=== PATIENT | male | born 1945 | race Caucasian/White ===

== ENCOUNTER → 2017-12-05 16:28 | Outpatient (REF) | payer MEDICARE, SELFPAY ==
[2017-12-05 17:17] LABS: Anion Gap 13.4 mEq/L (5-15); Blood Urea Nitrogen 21 mg/dL (7-18); Calcium 8.7 mg/dL (8.5-10.1); Carbon Dioxide 26 mmol/L (21.0-32.0); Chloride 107 mmol/L (98-107); Creatinine,Serum 1.71 mg/dL (0.70-1.30); Estimated Glomerular Filt Rate 40 ml/min (>60); GFR (African American) 48 ML/MIN (>60); Glucose 88 mg/dL (74-106); Potassium 4.4 mmoL/L (3.5-5.1); Sodium 142 mmol/L (136-145)
== END ==
LOC: LAB 16:28
PROVIDERS: Visit Provider Internal Medicine
DX: N40.1 Benign prostatic hyperplasia with lower urinary tract symptoms (principal); I10 Essential (primary) hypertension; E78.5 Hyperlipidemia, unspecified
CPT/HCPCS: 80048; 84153

== ENCOUNTER → 2017-12-14 13:48 | Outpatient (CLI) | payer MEDICARE, SELFPAY ==
--- NOTE | 2017-12-14 13:52 | US_ITS ---
US kidney retroperitoneal comp Ordering Physician: Henrry Hinton Patient Age: 72 years: Male HISTORY: ITS.REASON: RENAL INSUFFICIENCY, KIDNEY TEST ELEVATION Renal insufficiency TECHNIQUE: Ultrasound right and left kidney. COMPARISON : FINDINGS good color Doppler flow to both kidneys. Cortex well-maintained bilaterally with normal echogenicity. No hydronephrosis. No obstruction.. No mass in either kidney. Incidental view Spleen appears normal size. Right kidney.: 8 cm in length x 3.6 cm x 5.5 cm. Left kidney: 9 cm x 3.15 cm x 5.5 cm. IMPRESSION: Kidneys appear normal in size bilaterally with no hydronephrosis nor mass. Cortex well-maintained bilateral
== END ==
PROVIDERS: Family Provider Internal Medicine; PCP Internal Medicine; Visit Provider Internal Medicine
DX: N28.9 Disorder of kidney and ureter, unspecified (principal); R94.4 Abnormal results of kidney function studies
CPT/HCPCS: 76770

== ENCOUNTER → 2018-06-15 10:46 | Outpatient (CLI) | payer MEDICARE, SELFPAY | PROVIDERS: PCP Internal Medicine; Visit Provider Internal Medicine | DX: R07.9 Chest pain, unspecified (principal); R06.09 Other forms of dyspnea | CPT/HCPCS: 93005 ==

== ENCOUNTER → 2018-06-26 10:23 | Outpatient (CLI) | payer MEDICARE, SELFPAY ==
--- NOTE | 2018-06-26 | US_ITS ---
US urinary bladder CLINICAL INDICATION: ITS.REASON: ELEV KIDNEY FUNCTION ORDERING PHYSICIAN: Henrry Hinton PATIENT AGE: 73 years Comparison: None FINDINGS: A nodular area of isoechogenicity is present within the bladder lower which measures 2.5 x 1.8 cm. The remaining urinary bladder has an unremarkable appearance. The full bladder volume is 111 mL. Postvoid volume is 81 mL's. IMPRESSION: 1. 5 cm mass within the floor the urinary bladder. Neoplasm or polyp considered. 2. Low full bladder volume with mild amount of post port residual urine
--- NOTE | 2018-06-26 10:26 | US_ITS ---
US Kidney CLINICAL INDICATION: ITS.REASON: ELEVATED KIDNEY AND LIVER FUNCTION ORDERING PHYSICIAN: Henrry Hinton PATIENT AGE: 73 years Comparison: None FINDINGS: Kidneys are normal size shape and position. No hydronephrosis mass or perinephric fluid collection. There is mild splenomegaly at 14 cm. IMPRESSION: Unremarkable bilateral renal ultrasound Borderline splenomegaly
[2018-06-26 16:22] LABS: Creatinine,Urine Random 94 mg/dL (20-320); Patient Height,Urine 66 inches; Patient Weight,Urine 160 lbs
[2018-06-26 16:25] LABS: Total Protein,Urine Random 5.5 mg/dL (0.0-11.9)
[2018-06-26 18:29] LABS: Collection Time,Urine 24 hours; Creatinine 24 Hour,Urine 1457 mg/24hr (630-2500); Creatinine,Serum 1.44 mg/dL (0.70-1.30); Total Protein 24 Hour,Urine 85 mg/24 hr (40-90); Total Volume,Urine 1550 mL (250-2400)
== END ==
PROVIDERS: PCP Internal Medicine; Visit Provider Internal Medicine
DX: R94.5 Abnormal results of liver function studies (principal)
CPT/HCPCS: 76770; 76857; 82575; 84155

== ENCOUNTER → 2018-07-02 10:45 | Outpatient (CLI) | payer MEDICARE, SELFPAY ==
--- NOTE | 2018-07-02 10:46 | NM_ITS ---
CARDIOLITE SPECT MYOCARDIAL PERFUSION [facility], REST AND STRESS: History: Chest pain, shortness of breath family history Procedure: Patient exercised on Dru protocol 8 minutes and 9 seconds, resting heart rate was 60 beats per resting blood pressure 147/73, with exercise maximum heart rate achieved was 1 26 bpm which is greater than 85% of the maximum predicted heart rate and a blood pressure was 160/84. Test was stopped due to shortness of breath patient denied any complained of chest pain. Patient has good exercise capacity achieved 10.1mets of workload on treadmill, the blood pressure response to exercise was adequate. Electrocardiogram: Resting electrocardiogram showed sinus rhythm rightward axis, with exercise there is less than 1.[address] segment depression noted from the baseline EKG, occasional premature ventricular complexes seen. The EKG portion of the exercise Myoview is negative for ischemia. Cardiac stress and resting SPECT images: Cardiac stress and resting SPECT images were obtained using technetium 99 Myoview 31.2 mCi stress and 10.2 mCi at rest. Gated SPECT further analysis of segmental wall motion and calculation of the ejection fraction also done. Cardiac stress and resting SPECT images show a fixed defect in the wall with normal contractility on the gated SPECT is likely secondary to soft tissue attenuation, no reversible ischemia seen. Computer derived ejection fraction is 53% no wall motion abnormality, right ventricle is normal size and contractility. Conclusion: 1. The EKG portion of the exercise Myoview is negative for ischemia, patient has good exercise capacity achieved 10.1mets of workload on treadmill, the blood pressure response to exercise was adequate, there was no exercise-induced chest discomfort. 2. No scintigraphic evidence of reversible ischemia seen, either derived ejection fraction is 53% with no regional wall motion abnormality, right ventricle is normal size and contractility. 3. Normal exercise Myoview study.
--- NOTE | 2018-07-02 11:16 | HMH.ITSHM ---
Current Home Medications as stated by this patient Porfirio Burgess or manufacturer's representative. []ASA TAMSULOSIN VITAMIN B OMEPRAZOLE
--- NOTE | 2018-07-02 11:45 | CA_ITS ---
PROCEDURE: 2-D M-mode and color Doppler study INDICATIONS FOR THE TEST: Chest pain COPD Heart MurmurX Tobacco SmokingEX Palpitations Fatigue Syncope Edema Hypertension Diabetes Mellitus Rheumatic Fever SOBXDOE Obesity Hyperlipidemia Family History HDX Additional History BRADYCARDIA,ABN EKG PATIENT INFORMATION HEIGHT: 63 WEIGHT:163 GENDER: Male B/P:134/66 2-D/M-MODE INTERPRETATION: 2-D MEASUREMENTS OBSERVED VALUES IN CMS Right Ventricular Dimension (RVDd) 2.2 Interventricular Septum (Thickness)(IVsd) .7 Left Ventricular Internal Dimensions(LVIDd) 5.4 Left Ventricular Posterior Wall (Thickness)(LVPWd) .9 Aortic Root 3.1 Aortic Cusp Separation 1.7 Left Atrial Dimensions (LAD) 3.4 2D 1. Left atrium is mildly enlarged, left ventricle is normal size, there is no concentric left ventricular hypertrophy, visually estimated ejection fraction 50-55% with no obvious regional wall motion abnormality. 2. The right atrium and right ventricle are mildly enlarged with normal contractility. 3. The aortic valve is minimally thickened and fibrosed. 4. The mitral and tricuspid valve leaflets are minimally thickened 5. The pulmonic valve is poorly visualized. 6. No significant pericardial effusion noted. DOPPLER INTERROGATION: Doppler interrogation of the aortic, mitral and tricuspid valvular presence of mild mitral and tricuspid regurgitation, tricuspid regurgitation jet velocity is inadequate for calculation of the right ventricular systolic pressure, grade 1 diastolic dysfunction seen without tissue Doppler evidence of raised left atrial pressure. CONCLUSION: 1. Mildly enlarged left atrium, normal left ventricular size, visually estimated ejection fraction 50-55% with no regional wall motion abnormality, grade 1 diastolic dysfunction seen without tissue Doppler evidence of raised left atrial pressure. 2. Mildly enlarged right ventricle with normal contractility. 3. Mild mitral and tricuspid regurgitation 4. No significant pericardial effusion noted.
== END ==
PROVIDERS: PCP Internal Medicine; Visit Provider Internal Medicine
DX: R94.31 Abnormal electrocardiogram [ECG] [EKG]; R06.02 Shortness of breath; I44.0 Atrioventricular block, first degree; K21.9 Gastro-esophageal reflux disease without esophagitis; R00.1 Bradycardia, unspecified; Z82.49 Family history of ischemic heart disease and other diseases of the circulatory system
CPT/HCPCS: 78452; 93017; 93306; A9502

== ENCOUNTER → 2018-07-06 13:15 | Outpatient (CLI) | payer MEDICARE, SELFPAY | PROVIDERS: Visit Provider Internal Medicine Cardiovascular Disease | DX: R06.02 Shortness of breath (principal) | CPT/HCPCS: 36415; 83880 ==

== ENCOUNTER → 2018-07-18 07:14 | Outpatient (CLI) | payer MEDICARE, SELFPAY ==
--- NOTE | 2018-07-18 07:16 | XR_ITS ---
XR chest 2V HISTORY: ITS.REASON: / ORDERING PHYSICIAN: Isai Gabriel MD PATIENT AGE: 73 years COMPARISON: None FINDINGS: The cardiomediastinal silhouette and pulmonary vascularity are within normal limits. The lungs are clear without infiltrates, suspicious nodules, or pleural effusions. A small nodular opacity overlies the right lower lung zone at 6 mm and may be due to a nipple shadow. There is mild pleural thickening along the left lower hemithorax laterally. No acute bony abnormalities. IMPRESSION: Negative chest, no acute finding
== END ==
PROVIDERS: PCP Internal Medicine; Visit Provider Internal Medicine Cardiovascular Disease
DX: R06.02 Shortness of breath (principal); Z87.891 Personal history of nicotine dependence
CPT/HCPCS: 71046

== ENCOUNTER → 2018-08-13 10:14 | Outpatient (CLI) | payer MEDICARE, SELFPAY ==
--- NOTE | 2018-08-13 10:17 | NVE_ITS ---
Venous Exam Indications: 729.5 Pain in limb. IMPRESSIONS 1. There is no evidence of significant Reflux. 2. No evidence of deep or superficial vein thrombosis involving the right lower extremity 3. Fluid in the soft tissues of the calf suggesting a Ruptured robert's cyst noted. Right lower extremity venous duplex evaluation. Doppler flow study including spectral analysis, color and viera scale imaging. Location: Vascular laboratory. Patient status: Outpatient. Incidental findings: A Robert's cyst is noted incidentally on the right. appears to have ruptured and drained into the calf. Tables: Venous flow and imaging: + +-------+ + Location Overall Flow properties + +-------+ + Right common femoral Patent Normal phasicity; spontaneous; normal augmentation; compressible + +-------+ + Right saphenofemoral junction Patent Compressible + +-------+ + Right profunda femoral Patent Compressible + +-------+ + Right femoral Patent Normal phasicity; spontaneous; normal augmentation; compressible + +-------+ + Right greater saphenous Patent Normal phasicity; spontaneous; normal augmentation; compressible + +-------+ + Right popliteal Patent Normal phasicity; spontaneous; normal augmentation; compressible + +-------+ + Right posterior tibial Patent Compressible + +-------+ + Right peroneal Patent Compressible + +-------+ + Right gastrocnemius Patent Compressible + +-------+ + Right soleal Patent Compressible + +-------+ + (Report amended ) Electronically signed by: Rob Pandey [id number]
== END ==
PROVIDERS: PCP Internal Medicine; Visit Provider Internal Medicine
DX: M79.604 Pain in right leg (principal)
CPT/HCPCS: 93971

== ENCOUNTER → 2021-09-27 11:44 | Outpatient (CLI) | payer MEDICARE, SELFPAY ==
[2021-09-27 13:10] LABS: Basophils # 0.1 K/mm3 (0-0.2); Basophils % 0.8 % (0.1-2.0); Eosinophils # 0.5 K/mm3 (0.0-0.4); Eosinophils % 7.5 % (0.1-12.0); Hematocrit 43.8 % (42.0-52.0); Hemoglobin 15.2 g/dL (14.1-18.0); Lymphocytes # 1.7 K/mm3 (0.7-4.5); Lymphocytes % 27.2 % (10-50); Mean Corpuscular HGB Conc 34.8 g/dL (31.8-35.4); Mean Corpuscular Hemoglobin 32.9 pg (27.0-31.2); Mean Corpuscular Volume 94.6 fl (80-94); Mean Platelet Volume 9.6 fl (7.4-10.4); Monocytes # 0.4 K/mm3 (0.1-1.0); Monocytes % 6.7 % (1.7-9.3); Neutrophils # 3.6 K/mm3 (1.8-7.8); Neutrophils % 57.8 % (37.0-80.0); Platelet Count 145 K/mm3 (142-424); Red Blood Count 4.63 M/mm3 (4.60-6.20); White Blood Count 6.2 K/mm3 (4.8-10.8)
[2021-09-27 13:36] LABS: Alanine Aminotransferase 40 U/L (12-78); Albumin Level 3.8 g/dl (3.5-5.0); Albumin/Globulin Ratio 1.7 (1.1-1.8); Alkaline Phosphatase 52 U/L (38-126); Aspartate Amino Transferase 35 U/L (17-59); Bilirubin,Total 0.6 mg/dl (0.2-1.3); Blood Urea Nitrogen 22 mg/dl (9-20); Calcium 9.2 mg/dl (8.4-10.2); Carbon Dioxide 25 mmol/L (22.0-30.0); Chloride 108 mmol/L (98-107); Chol/HDL Ratio 3.2 (1-3.5); Cholesterol 105 mg/dl (140-200); Estimated Glomerular Filt Rate 59 ml/min (>60); GFR (African American) 71 ML/MIN (>60); Globulin 2.3 g/dL (1.3-3.2); Glucose 81 mg/dl (74-100); HDL Cholesterol 33 mg/dl (40-60); Sodium 138 mmol/L (136-145); Total Protein,Serum 6.1 g/dl (6.3-8.2); Triglycerides 158 mg/dl (30-150); VLDL Cholesterol 32 mg/dL (0-40)
[2021-09-27 13:38] LABS: Erythrocyte Sedimentation Rate 4 mm/hr (0-20)
[2021-09-27 13:49] LABS: Direct LDL Cholesterol 48.15 mg/dL (100-129)
== END ==
PROVIDERS: PCP Internal Medicine; Visit Provider Internal Medicine
DX: I10 Essential (primary) hypertension (principal); E78.5 Hyperlipidemia, unspecified; I73.9 Peripheral vascular disease, unspecified; F41.9 Anxiety disorder, unspecified; G44.209 Tension-type headache, unspecified, not intractable
CPT/HCPCS: 80053; 80061; 85025; 85651

== ENCOUNTER → 2021-10-20 09:54 | Outpatient (CLI) | payer MEDICARE, SELFPAY ==
--- NOTE | 2021-10-20 10:02 | CT_ITS ---
FINAL REPORT CLINICAL HISTORY: VASCULAR HEADACHES FINDINGS: Axial images of the head were obtained without contrast. Coronal reformatted images were also obtained.This study was performed with techniques to keep radiation doses as low as reasonably achievable (ALARA). Individualized dose reduction techniques using automated exposure control or adjustment of mA and/or kV according to the patient's size were employed. There is no evidence of intracranial hemorrhage or mass. The ventricular size is within normal limits. There is no evidence of shift of the midline structures. No abnormal extra axial fluid collection is identified. There is opacification of several mastoid air cells consistent with mastoiditis. No skull abnormality is seen on the bone window images. IMPRESSION: No acute intracranial abnormality. Findings consistent with mastoiditis. Reviewed, Interpreted and Dictated by Christian Cook III, MD Transcribed by Gretel Ponce Authenticated and [facility]
== END ==
PROVIDERS: PCP Internal Medicine; Visit Provider Internal Medicine
DX: G44.1 Vascular headache, not elsewhere classified (principal)
CPT/HCPCS: 70450

== ENCOUNTER → 2023-02-03 11:21 | Outpatient (CLI) | payer MEDICARE, SELFPAY ==
--- NOTE | 2023-02-03 11:26 | XR_ITS ---
FINAL REPORT TECHNIQUE: Chest PA & Lateral CLINICAL HISTORY: RIGHT SIDED CHEST PAIN COMPARISON: None FINDINGS: 2 views of the chest were performed. The heart size is normal. The mediastinum is within normal limits. There is no acute cardiopulmonary process. There are no pleural effusions. There is no pneumothorax. The bony thorax appears intact. IMPRESSION: No acute cardiopulmonary process. Reviewed, Interpreted and Dictated by Erik Elam MD Transcribed by Kajal Gallo Authenticated and [facility]
== END ==
PROVIDERS: PCP Internal Medicine; Visit Provider Internal Medicine
DX: R07.81 Pleurodynia (principal); W19.XXXA Unspecified fall, initial encounter
CPT/HCPCS: 71046

== ENCOUNTER 2023-05-24 11:58 | Outpatient (CLI) | payer MEDICARE, SELFPAY ==
[2023-05-24 13:16] LABS: Anion Gap 10.9 mEq/L (5-15); Blood Urea Nitrogen 16 mg/dl (9-20); Calcium 9.1 mg/dl (8.4-10.2); Carbon Dioxide 27 mmol/L (22.0-30.0); Chloride 105 mmol/L (98-107); Estimated Glomerular Filt Rate 54 ml/min (>60); GFR (African American) 65 ML/MIN (>60); Glucose 95 mg/dl (74-100); Potassium 3.9 mmoL/L (3.5-5.1); Sodium 139 mmol/L (136-145); Uric Acid 7.4 mg/dl (3.5-8.5)
== END 2023-05-24 23:59 ==
LOC: LAB.DROPOF 11:59
PROVIDERS: PCP Internal Medicine; Visit Provider Internal Medicine
DX: M10.372 Gout due to renal impairment, left ankle and foot (principal); Z68.24 Body mass index [BMI] 24.0-24.9, adult
CPT/HCPCS: 80048; 84550

== ENCOUNTER 2023-07-21 14:36 | Outpatient (CLI) | payer MEDICARE, SELFPAY ==
[2023-07-21 16:04] LABS: Alanine Aminotransferase 22 U/L (12-78); Albumin Level 3.8 g/dl (3.5-5.0); Albumin/Globulin Ratio 1.7 (1.1-1.8); Alkaline Phosphatase 55 U/L (38-126); Anion Gap 11.9 mEq/L (5-15); Aspartate Amino Transferase 25 U/L (17-59); Bilirubin,Total 0.8 mg/dl (0.2-1.3); Blood Urea Nitrogen 19 mg/dl (9-20); Calcium 9.2 mg/dl (8.4-10.2); Carbon Dioxide 26 mmol/L (22.0-30.0); Chloride 104 mmol/L (98-107); Cholesterol 124 mg/dl (140-200); Estimated Glomerular Filt Rate 53 ml/min (>60); GFR (African American) 65 ML/MIN (>60); Globulin 2.3 g/dL (1.3-3.2); Glucose 80 mg/dl (74-100); HDL Cholesterol 42 mg/dl (40-60); Potassium 3.9 mmoL/L (3.5-5.1); Sodium 138 mmol/L (136-145); Total Protein,Serum 6.1 g/dl (6.3-8.2); Triglycerides 194 mg/dl (30-150); VLDL Cholesterol 39 mg/dL (0-40)
[2023-07-21 16:16] LABS: Direct LDL Cholesterol 66.65 mg/dL (100-129)
[2023-07-21 16:35] LABS: Prostate Specific Ag Screen 1.5 ng/ml (0.0-4.0)
== END 2023-07-21 23:59 | disposition home or self-care (01) ==
LOC: LAB.DROPOF 14:38
PROVIDERS: PCP Internal Medicine; Visit Provider Internal Medicine
DX: I10 Essential (primary) hypertension (principal); Z12.5 Encounter for screening for malignant neoplasm of prostate; N40.1 Benign prostatic hyperplasia with lower urinary tract symptoms; K21.9 Gastro-esophageal reflux disease without esophagitis; E78.5 Hyperlipidemia, unspecified; M10.9 Gout, unspecified
CPT/HCPCS: 80053; 80061; G0103

== ENCOUNTER 2023-10-04 13:54 | Outpatient (CLI) | payer MEDICARE, SELFPAY ==
--- NOTE | 2023-10-04 14:02 | XR_ITS ---
FINAL REPORT TECHNIQUE: Chest PA & Lateral CLINICAL HISTORY: Left chest wall pain COMPARISON: 02/03/2023 FINDINGS: 2 views of the chest were performed. The heart size is normal. The mediastinum is within normal limits. There is no acute cardiopulmonary process. There is scarring at the left costophrenic angle. There are no pleural effusions. There is no pneumothorax. The bony thorax appears intact. IMPRESSION: No acute cardiopulmonary process. Reviewed, Interpreted and Dictated by Erik Elam MD Transcribed by Kajal Gallo Authenticated and [facility]
--- NOTE | 2023-10-04 14:02 | XR_ITS ---
FINAL REPORT CLINICAL HISTORY: Left shoulder pain with movement COMPARISON: None FINDINGS: LEFT SHOULDER 3 views of the left shoulder were obtained. There is no acute fracture or dislocation. There are moderate hypertrophic changes of the acromioclavicular joint. The glenohumeral joint is intact. Density in the distal supraspinatus tendon is consistent with calcific or ossific tendinitis. IMPRESSION: Hypertrophic changes and tendinitis. Reviewed, Interpreted and Dictated by Erik Elam MD Transcribed by Kajal Gallo Authenticated and . [facility]
== END 2023-10-04 23:59 | disposition home or self-care (01) ==
LOC: RAD 13:56
PROVIDERS: PCP Internal Medicine; Visit Provider Internal Medicine
DX: R07.9 Chest pain, unspecified (principal); M25.512 Pain in left shoulder
CPT/HCPCS: 71046; 73030

== ENCOUNTER 2024-10-02 15:49 | Outpatient (CLI) | payer MEDICARE, SELFPAY ==
--- OUTSIDE RECORDS SUMMARY | 2024-10-02 15:52 | XMS_ITS | Clinical Summary ---
Author Organization [facility] Address [address] [place] [address] Care Team Providers Care Head Bellhop Captain Name Role Phone Henrry Hinton MD Primary Care Provider [phone] Allergies No known active allergies Medications Cyanocobalamin (VITAMIN B 12) 250 MCG lozenge Take by mouth. Active tamsulosin (FLOMAX) 0.4 MG capsule 24 hr capsule Take 1 capsule by mouth Every Night. Active omeprazole (priLOSEC) 20 MG capsule Take 20 mg by mouth Daily. Active aspirin (ASPIRIN 81) 81 MG chewable tablet Chew 81 mg Daily. Active Social History Tobacco Use Types Packs/Day Years Used Date Smoking Tobacco: Never Assessed Abuse Screen Answer Date Recorded Unsafe at Home or Work/School Not on file Feels Threatened by Someone? Not on file 02/2023 Does Anyone Keep You from Co ntacting Others or Doint Things Outside the Home? Not on file 12/15/2022 Physical Sign of Abuse Present Not on file 1 Housing Stability Answer Date Recorded Current Living Arrangements Not on file 12/04 Potentially Unsafe Housing Conditions Not on nelson e 12/15/2022 Family and Community Support Answer Kartik e Recorded Help with Day-to-Day Activities Not on file 12/15/2022 Lonely or Isolated Not on file 12/15/2022 Employment Answer Date Recorded Do you want help finding or keeping work or a vincent b? Not on file 12/15/2022 Disabilities Answer Date Recorded Concentrating, Remembering, or Making Decisions Difficulty Not on file 12/15/2022 Doing Errands Independently Difficulty Not on fi le 12/15/2022 Education Answer Date Recorded Help with school or training? Not on file Preferred Language Not on file 12/15/2022 Sex and Gender Information Value Date Recorded Sex Assigned at Not on file Legal Sex Male 1:50 PM EDT Gender Identity Not on file Sexual Orientation Not on file Last Filed Vital Signs Vital Sign Reading Time Taken Comments Blood Pressure 149/77 08/03/2018 10:00 AM EDT Pulse 57 08/03/2018 10:00 AM EDT Temperature 36.3 C (97.4 F) 08/03/2018 9:40 AM EDT Respiratory Rate 13 08/03/2018 10:00 AM EDT Oxygen Saturation 94% 08/03/2018 10:00 AM EDT Inhaled Oxygen Concentration - - Weight 72.6 kg (160 lb) 08/03/2018 7:09 AM EDT Height 165.1 cm (5' 5 ) 08/03/2018 7:09 AM EDT Body Mass Index 26.63 08/03/2018 7:09 AM EDT Plan of Treatment Health Maintenance Due Date Last Done Comments ANNUAL PHYSICAL 1945 HEPATITIS C SCREENING 1945 TDAP/TD VACCINES (1 - Tdap) 1964 Pneumococcal Vaccine 50+ (1 of 1 - PCV) 06/05/1995 ZOSTER VACCINE (1 of 2) 06/05/1995 RSV Vaccine - Adults (1 - 1-dose 75+ series) COVID-19 Vaccine ( - 2023- season) 2023 INFLUENZA VACCINE 12/04/2024 Insurance [id number] MEDICARE ADVANTAGE Care Teams Head Bellhop Captain Relationship Specialty Start Date End Date Henrry Hinton MD [address] [facility] [address] [place], [place] [id number] PCP - General Internal Medicine 08/03/18
--- NOTE | 2024-10-02 15:59 | ECG_ITS ---
APPROVED REPORT Exam: Resting ECG HR:52 bpm ECG Measurements Heart Rate 52 AXES SD 274 P 76 QRSd 145 QRS 57 QT 483 T 48 QTc 462 Conclusion SINUS BRADYCARDIA WITH FIRST DEGREE AV BLOCK RIGHT BUNDLE BRANCH BLOCK [120+ ms QRS DURATION, UPRIGHT V1, 40+ ms S IN I/aVL/V4/V5/V6] ABNORMAL ECG UNCONFIRMED REPORT Electronically signed by : Ethan Lam MD 10/03/2024 08:38:59
== END 2024-10-02 23:59 | disposition home or self-care (01) ==
LOC: RT 15:50
PROVIDERS: PCP Internal Medicine; Visit Provider Internal Medicine
DX: I47.10 Supraventricular tachycardia, unspecified (principal); I49.1 Atrial premature depolarization; I44.0 Atrioventricular block, first degree; I45.10 Unspecified right bundle-branch block; R94.31 Abnormal electrocardiogram [ECG] [EKG]; R55 Syncope and collapse
CPT/HCPCS: 93005; 93225; 93227